=== PATIENT | female | born 1950 | race Caucasian/White ===

== ENCOUNTER 2021-05-29 08:57 | Outpatient (CLI) | payer MEDICARE, BC | END 2021-05-29 08:58 | disposition home or self-care (01) | LOC: BICRAD 08:57 | PROVIDERS: ATTEND Specialist | DX: J44.9 Chronic obstructive pulmonary disease, unspecified (principal) | CPT/HCPCS: 71046 ==

== ENCOUNTER 2021-12-14 10:30 | Outpatient (CLI) | payer MEDICARE, BC | END 2021-12-14 10:31 | disposition home or self-care (01) | LOC: BICRAD 10:30 | PROVIDERS: ATTEND Nurse Practitioner Family | DX: M25.551 Pain in right hip (principal) ==

== ENCOUNTER 2022-05-21 14:33 | Outpatient (CLI) | payer MEDICARE, BC | END 2022-05-21 14:34 | disposition home or self-care (01) | LOC: BICRAD 14:33 | PROVIDERS: ATTEND Specialist | DX: J18.9 Pneumonia, unspecified organism (principal) | CPT/HCPCS: 71046 ==

== ENCOUNTER 2023-02-20 15:17 | Inpatient (IN) | payer MEDICARE, BC ==
[~2023-02-20 15:17] MED LIST: Iopamidol-370 76% 500 ML MDV (1 ML CHARGE) ONE
[2023-02-20] MEDS ORDERED: fentaNYL 50 mcg/mL 1 mL Vial ONE ×2 (16:02→16:35)
[2023-02-20 16:09] LABS: Hemoglobin 10.5 g/dL (12.0-16.0); Mean Corpuscular HGB CONC 31.9 g/dL (32.0-36.0); Mean Corpuscular Hemoglobin 30.1 pg (27.0-31.0); Mean Corpuscular Volume 94.3 fl (78.0-98.0); Mean Platelet Volume 10.4 fL (7.4-10.4); Platelet Count 166 10x3/uL (130-400); RBC Distribution Width 17.3 % (11.5-14.5); Red Blood Cell (RBC) Count 3.49 mill/uL (4.20-5.40); White Blood Cell (WBC) Count 1.4 10x3/uL (4.8-10.8)
[2023-02-20 16:12] LABS: Delete Auto Diff?? YES
[2023-02-20 16:14] LABS: Actual Bicarbonate (HCO3v) 23.3 mEq/L (22-28); Base Excess -2.8 mEq/L (-2.0 to +3.0); Calcium, Ionized (venous) 0.93 mmol/L (1.16-1.32); Chloride (VBG) 97 mmol/L (98-106); Hematocrit-VBG 32 % (36.0-47.0); Hemoglobin (Hb) 10.8 g/dL (11.7-16.1); Potassium (VBG) 5.05 mmol/L (3.70-5.30); Sodium 127.5 mmol/L (133-146)
[2023-02-20 16:21] LABS: INR-International Normal Ratio 1.2; PTT 28.8 sec (22.9-36.1); Prothrombin Time 15.1 sec (12.0-14.7)
[2023-02-20 16:31] LABS: Magnesium 2.1 mg/dL (1.6-2.6)
[2023-02-20 16:41] LABS: Anisocytosis SLIGHT = 6-15 cells HPF (0-5); Burr Cells SLIGHT = 2-5 cells HPF (0-1); CellaVision Operator ID LAB.MJL; Large Platelets 21.4 % (0-5); Ovalocytes SLIGHT = 2-5 cells HPF (0-1); Platelet Adequacy Comment Platelets Normal; Platelet Clumps 1.6 % (0-5); Polychromasia SLIGHT = 2-3 cells HPF (0-2); Vacuoles MODERATE
[2023-02-20 16:45] LABS: Band 45 % (5-11); Lymphocytes 2 % (21-51); Manual Diff?? YES; Metamyelocyte 11 % (0-0); Monocytes 5 % (0-10); Myelocyte 2 % (0-0); Neutrophil 35 % (42-75); Nucleated RBC (Manual Ct) 6 % (0); Total Cell Count 126
[2023-02-20] MEDS ORDERED: Vancomycin 1.5 GRAM/300 ML BAG 1.5 GM in Premix Bag 1 BAG IVPB SCH (18:30)
[2023-02-20] MEDS ORDERED: HYDROmorphone 0.5 MG/0.5 ML SYRINGE ONE (18:32)
[2023-02-20] MEDS ORDERED: cefTRIAXone (ROCEPHIN) 1 GM VIAL ONE ×2 (18:32→18:35)
[2023-02-20] MEDS ORDERED: Ketamine In 0.9 % NaCl 50 MG/5 ML SYRINGE ONE (18:35)
[2023-02-20 18:57] LABS: Troponin I Less than 0.010 ng/mL (< 0.028)
[2023-02-20] MEDS ORDERED: methylPREDNISolone Sod Succ/PF 125 MG/2 ML VIAL ONE (19:15)
[2023-02-20 19:36] LABS: ALT (SGPT) 16 U/L (8-55); AST (SGOT) 17 U/L (5-34); Albumin 2.9 g/dL (3.4-4.8); Alkaline Phosphatase 53 U/L (40-110); Anion Gap 16 mmol/L (10-20); BUN (Urea Nitrogen) 32 mg/dL (9.8-20.1); Bilirubin, Total 0.3 mg/dL (0.2-1.2); Calc. Creatinine Clearance 0 mL/min (70-130); Calcium 8.4 mg/dL (7.8-10.44); Carbon Dioxide 22 mmol/L (23-31); Chloride 98 mmol/L (98-107); Estimated GFR 49; Glucose 75 mg/dL (83-110); Protein, Total 5.9 g/dL (5.8-8.1); Sodium 131 mmol/L (136-145)
[2023-02-20] MEDS ORDERED: Carvedilol 25 MG TAB PO SCH (20:15)
[2023-02-20] MEDS ORDERED: Calcium Carbonate 500 MG ChewTAB PO PRN (20:16)
[2023-02-20] MEDS ORDERED: Ondansetron ODT 4 MG TAB PO PRN (20:16)
[2023-02-20] MEDS ORDERED: Senokot S 8.6-50 MG TAB PO PRN (20:16)
[2023-02-20] MEDS ORDERED: diphenhydrAMINE 25 MG CAP PO PRN (20:45)
[2023-02-20] MEDS ORDERED: Zolpidem Tartrate 5 MG TAB PO PRN (20:45)
[2023-02-20] MEDS ORDERED: diphenhydrAMINE 50 MG/ML VIAL IM/IV PRN (20:45)
[2023-02-20] MEDS ORDERED: Fentanyl CADD 100 ML IVPB SCH (20:45)
[2023-02-20] MEDS ORDERED: Promethazine HCl 25 MG/ML VIAL IM PRN (20:45)
[2023-02-20] MEDS ORDERED: Ondansetron PF 4 MG/2 ML Vial IVP PRN (20:45)
[2023-02-20 21:23] LABS: Lactic Acid 3.2 mmol/L (0.5-2.2)
[2023-02-20] MEDS ORDERED: Ipratropium/Albuterol 3 ML NEB NEB PRN (23:58)
[2023-02-21] MEDS ORDERED: Ipratropium/Albuterol 3 ML NEB NEB PRN (00:13)
[2023-02-21] MEDS ORDERED: Lactated Ringer's 1,000 ML IV SCH ×2 (00:15→05:15)
[2023-02-21] MEDS ORDERED: Lactated Ringer's 500 ML IV SCH ×2 (00:15→02:00)
[2023-02-21] MEDS ORDERED: Docusate 100 MG CAP PO PRN (00:19)
[2023-02-21] MEDS ORDERED: Diltiazem HCl SR 60 mg Capsule PO SCH (00:30)
[2023-02-21] MEDS ORDERED: Naloxone HCl 0.4 mg/ml Vial ONE ×2 (00:31→00:33)
[2023-02-21] MEDS: Naloxone HCl 0.4 mg/ml Vial IV PRN ×2 (00:32→00:36)
[2023-02-21] MEDS ORDERED: Etomidate 20 MG/10 ML VIAL ONE (00:33)
[2023-02-21] MEDS ORDERED: Rocuronium Bromide 10 MG/ML (10ML VIAL) ONE (00:33)
[2023-02-21] MEDS ORDERED: NOREPINEPHRINE 8 MG/250 ML-D5W 250 ML ONE (00:46)
[2023-02-21] MEDS ORDERED: Ventilator Sedation Protocol 1 EACH FS SCH (00:57)
[2023-02-21] MEDS ORDERED: Cefepime 2 GM in Sodium Chloride 0.9% 100 ML IVPB SCH (01:00)
[2023-02-21] MEDS ORDERED: Fentanyl BOLUS 250 ML IVPB PRN (01:15)
[2023-02-21] MEDS ORDERED: Propofol 1,000 MG/100 ML VIAL IV PRN (01:15)
[2023-02-21] MEDS ORDERED: Rocuronium Bromide 10 MG/ML (10ML VIAL) IVP SCH (01:15)
[2023-02-21] MEDS ORDERED: Morphine 2 MG/ML VIAL SLOW IVP PRN (01:15)
[2023-02-21] MEDS ORDERED: Lorazepam 2 MG/ML VIAL SLOW IVP PRN (01:15)
[2023-02-21] MEDS ORDERED: Propofol BOLUS 1,000 MG/100 ML VIAL IV PRN (01:15)
[2023-02-21] MEDS ORDERED: DISCONTINUE PREVIOUS NARCOTIC PAIN MEDICATIONS AND BENZODIAZEPINES FS SCH (01:15)
[2023-02-21] MEDS ORDERED: Fentanyl CADD 0 ML ONE (01:23)
[2023-02-21 01:26] LABS: Actual Bicarbonate (HCO3a) 16.1 mEq/L (22-28); Base Excess (BEa) -10.1 mEq/L (-2.0 to +3.0); CO2 Tension 36.8 mmHg (35.0-45.0); Calcium, Ionized (arterial) 0.92 mmol/L (1.12-1.30); Carboxyhemoglobin (COHb) 0.6 gm% (0.0-3.0); Hematocrit-ABG 26 % (36.0-47.0); O2 Tension (PaO2), arterial 376.3 mmHg (> 70.0)
[2023-02-21 01:30] LABS: Puncture Site LRA
[2023-02-21] MEDS ORDERED: Dextrose 5% in Water 1,000 ML IV PRN (01:41)
[2023-02-21] MEDS ORDERED: Dextrose 50% Abboject 50 ML SYRINGE SLOW IVP PRN (01:41)
[2023-02-21] MEDS ORDERED: Glucagon 1 MG/ML KIT IM PRN (01:41)
[2023-02-21] MEDS: methylPREDNISolone Sod Succ 40 MG VIAL IVP SCH ×4 (02:03→18:39)
[2023-02-21] MEDS: Ipratropium/Albuterol 3 ML NEB NEB SCH ×6 (02:30→21:38)
[2023-02-21] MEDS ORDERED: Electrolyte Replacement Protocol 1 EACH FS SCH (02:35)
[2023-02-21] MEDS ORDERED: NOREPINEPHRINE 8 MG/250 ML-D5W 250 ML IVPB SCH (02:45)
[2023-02-21 05:16] LABS: Anion Gap 16 mmol/L (10-20); BUN (Urea Nitrogen) 28 mg/dL (9.8-20.1); Calc. Creatinine Clearance 76 mL/min (70-130); Calcium 7.6 mg/dL (7.8-10.44); Carbon Dioxide 17 mmol/L (23-31); Chloride 104 mmol/L (98-107); Estimated GFR 70; Glucose 104 mg/dL (83-110); Potassium 4.4 mmol/L (3.5-5.1); Sodium 133 mmol/L (136-145)
[2023-02-21] MEDS: Budesonide 0.5 MG/2 ML NEB NEB SCH ×2 (07:37→18:18)
[2023-02-21] MEDS ORDERED: Fluconazole In NaCl,Iso-Osm 200 MG in Premix Bag 1 BAG IVPB SCH (09:00)
[2023-02-21] MEDS ORDERED: Pantoprazole 40 MG VIAL IVP SCH (09:00)
[2023-02-21] MEDS: guaiFENesin ER 600 MG TAB PO SCH ×2 (09:52→22:00)
[2023-02-21] MEDS: Sodium Bicarbonate 70 MEQ in Sodium Chloride 0.45% 1,000 ML IV SCH (09:52)
[2023-02-21] MEDS: Pantoprazole 40 MG VIAL IVP SCH (09:54)
[2023-02-21] MEDS: Polyethylene Glycol 3350 17 GM Packet PO SCH (09:54)
[2023-02-21] MEDS ORDERED: Vancomycin 1.5 GRAM/300 ML BAG 1.5 GM in Premix Bag 1 BAG IVPB SCH (10:00)
[2023-02-21] MEDS: Nystatin 500,000 UNITS/5 ML UDCUP SSW SCH ×4 (10:29→21:54)
[2023-02-21] MEDS ORDERED: Midazolam HCl 2 mg/2 ml Vial SLOW IVP SCH (13:45)
[2023-02-21] MEDS: Cefepime 1 GM in Sodium Chloride 0.9% 100 ML IVPB SCH (14:03)
[2023-02-21] MEDS ORDERED: Fentanyl CADD 100 ML ONE (15:08)
[2023-02-21] MEDS: Fentanyl CADD 100 ML IV SCH (15:20)
[2023-02-21] MEDS ORDERED: Guaifenesin DM 100-10/5 ML UDCUP PER TUBE PRN (21:53)
[2023-02-22] MEDS: methylPREDNISolone Sod Succ 40 MG VIAL IVP SCH ×4 (00:42→17:58)
[2023-02-22] MEDS: Cefepime 1 GM in Sodium Chloride 0.9% 100 ML IVPB SCH ×2 (00:42→14:08)
[2023-02-22] MEDS: Ipratropium/Albuterol 3 ML NEB NEB SCH ×6 (02:18→21:43)
[2023-02-22] MEDS: Sodium Bicarbonate 70 MEQ in Sodium Chloride 0.45% 1,000 ML IV SCH ×2 (04:00→15:54)
[2023-02-22] MEDS: Fentanyl CADD 100 ML IV SCH (04:30)
[2023-02-22 04:50] LABS: Anion Gap 13 mmol/L (10-20); BUN (Urea Nitrogen) 36 mg/dL (9.8-20.1); Calc. Creatinine Clearance 77 mL/min (70-130); Calcium 7.5 mg/dL (7.8-10.44); Carbon Dioxide 21 mmol/L (23-31); Chloride 100 mmol/L (98-107); Estimated GFR 71; Glucose 127 mg/dL (83-110); Potassium 4.8 mmol/L (3.5-5.1); Sodium 129 mmol/L (136-145)
[2023-02-22 07:02] LABS: Actual Bicarbonate (HCO3a) 22.4 mEq/L (22-28); Base Excess (BEa) -3.7 mEq/L (-2.0 to +3.0); CO2 Tension 45.8 mmHg (35.0-45.0); Calcium, Ionized (arterial) 0.93 mmol/L (1.12-1.30); Carboxyhemoglobin (COHb) 1.7 gm% (0.0-3.0); Hematocrit-ABG 26 % (36.0-47.0); Potassium - ABG Lab 5.19 mmol/L (3.70-5.30); pH, Arterial 7.308 (7.35-7.45)
[2023-02-22 07:27] LABS: Puncture Site RRA
[2023-02-22] MEDS: Budesonide 0.5 MG/2 ML NEB NEB SCH ×2 (07:29→18:27)
[2023-02-22 07:46] LABS: #Monocytes 0.1 thou/uL (0.11-0.59); #Neutrophils 8.1 thou/uL (1.40-6.50); %Basophils 0.1 % (0.0-1.0); %Eosinophils 0.2 % (0.0-10.0); %Lymphocytes 2.1 % (21.0-51.0); %Monocytes 1.2 % (0.0-10.0); %Neutrophils 93.8 % (42.0-75.0); Hemoglobin 9.1 g/dL (12.0-16.0); Mean Corpuscular HGB CONC 32.4 g/dL (32.0-36.0); Mean Corpuscular Hemoglobin 29.6 pg (27.0-31.0); Mean Corpuscular Volume 91.5 fl (78.0-98.0); Mean Platelet Volume 12.3 fL (7.4-10.4); Red Blood Cell (RBC) Count 3.07 mill/uL (4.20-5.40); White Blood Cell (WBC) Count 8.7 10x3/uL (4.8-10.8)
[2023-02-22 07:58] LABS: Platelet Count 25 10x3/uL (130-400)
[2023-02-22] MEDS ORDERED: HYDROcodone/Acetaminophen 5/325 mg Tablet PO PRN (08:38)
[2023-02-22 09:13] LABS: Hemoglobin 8.7 g/dL (12.0-16.0); Mean Corpuscular HGB CONC 31.6 g/dL (32.0-36.0); Mean Corpuscular Hemoglobin 29.7 pg (27.0-31.0); Mean Corpuscular Volume 93.9 fl (78.0-98.0); Mean Platelet Volume 10.9 fL (7.4-10.4); RBC Distribution Width 18.4 % (11.5-14.5); Red Blood Cell (RBC) Count 2.93 mill/uL (4.20-5.40); White Blood Cell (WBC) Count 8.4 10x3/uL (4.8-10.8)
[2023-02-22 09:23] LABS: Delete Auto Diff?? YES; Platelet Count 22 10x3/uL (130-400)
[2023-02-22 09:24] LABS: Manual Diff?? YES
[2023-02-22 09:33] LABS: Vancomycin, Trough 15.9 ug/mL
[2023-02-22] MEDS: Pantoprazole 40 MG VIAL IVP SCH (09:56)
[2023-02-22] MEDS: Polyethylene Glycol 3350 17 GM Packet PO SCH (09:56)
[2023-02-22] MEDS: Nystatin 500,000 UNITS/5 ML UDCUP SSW SCH ×4 (09:56→21:21)
[2023-02-22 10:28] LABS: Anisocytosis SLIGHT = 6-15 cells HPF (0-5); Band 18 % (5-11); Burr Cells SLIGHT = 2-5 cells HPF (0-1); CellaVision Operator ID LAB.NR; Large Platelets 3.6 % (0-5); Lymphocytes 1 % (21-51); Metamyelocyte 9 % (0-0); Neutrophil 73 % (42-75); Nucleated RBC (Manual Ct) 4 % (0); Platelet Adequacy Comment Platelets Decreased; Polychromasia SLIGHT = 2-3 cells HPF (0-2); Total Cell Count 137
[2023-02-22] MEDS: Morphine 4 MG/ML VIAL SLOW IVP PRN ×3 (11:14→16:51)
[2023-02-23] MEDS ORDERED: Furosemide 20 MG/2 ML VIAL SLOW IVP SCH (00:15)
[2023-02-23] MEDS: methylPREDNISolone Sod Succ 40 MG VIAL IVP SCH ×2 (00:34→05:52)
[2023-02-23] MEDS: Cefepime 1 GM in Sodium Chloride 0.9% 100 ML IVPB SCH ×2 (00:34→13:19)
[2023-02-23] MEDS: Ipratropium/Albuterol 3 ML NEB NEB SCH ×6 (02:05→21:56)
[2023-02-23 04:04] LABS: #Monocytes 0.1 thou/uL (0.11-0.59); #Neutrophils 8.9 thou/uL (1.40-6.50); %Basophils 0.1 % (0.0-1.0); %Lymphocytes 0.6 % (21.0-51.0); %Monocytes 1.1 % (0.0-10.0); %Neutrophils 92.5 % (42.0-75.0); Hemoglobin 8.1 g/dL (12.0-16.0); Mean Corpuscular HGB CONC 30.9 g/dL (32.0-36.0); Mean Corpuscular Hemoglobin 29.2 pg (27.0-31.0); Mean Corpuscular Volume 94.6 fl (78.0-98.0); RBC Distribution Width 18.4 % (11.5-14.5); Red Blood Cell (RBC) Count 2.77 mill/uL (4.20-5.40); White Blood Cell (WBC) Count 9.6 10x3/uL (4.8-10.8)
[2023-02-23 04:19] LABS: Platelet Count 8 10x3/uL (130-400)
[2023-02-23 04:20] LABS: Manual Diff?? YES
[2023-02-23 04:38] LABS: ALT (SGPT) 56 U/L (8-55); AST (SGOT) 42 U/L (5-34); Albumin 2.3 g/dL (3.4-4.8); Alkaline Phosphatase 51 U/L (40-110); Anion Gap 12 mmol/L (10-20); BUN (Urea Nitrogen) 34 mg/dL (9.8-20.1); Bilirubin, Total 0.3 mg/dL (0.2-1.2); Calc. Creatinine Clearance 102 mL/min (70-130); Carbon Dioxide 27 mmol/L (23-31); Chloride 100 mmol/L (98-107); Estimated GFR 93; Glucose 93 mg/dL (83-110); Potassium 4.7 mmol/L (3.5-5.1); Protein, Total 5.3 g/dL (5.8-8.1); Sodium 134 mmol/L (136-145)
[2023-02-23 05:19] LABS: Anisocytosis SLIGHT = 6-15 cells HPF (0-5); Band 25 % (5-11); Burr Cells SLIGHT = 2-5 cells HPF (0-1); Hypochromia SLIGHT = 6-15 cells HPF (0-5); Large Platelets 3.7 % (0-5); Lymphocytes 1 % (21-51); Metamyelocyte 1 % (0-0); Monocytes 2 % (0-10); Neutrophil 71 % (42-75); Platelet Adequacy Comment Significant decrease; Tear Drops SLIGHT = 2-5 cells HPF (0-1); Total Cell Count 107
[2023-02-23] MEDS: Sodium Bicarbonate 70 MEQ in Sodium Chloride 0.45% 1,000 ML IV SCH (05:50)
[2023-02-23] MEDS: Budesonide 0.5 MG/2 ML NEB NEB SCH ×2 (06:09→18:12)
[2023-02-23] MEDS: Polyethylene Glycol 3350 17 GM Packet PO SCH (08:55)
[2023-02-23] MEDS: Pantoprazole 40 MG VIAL IVP SCH (09:36)
[2023-02-23] MEDS: Nystatin 500,000 UNITS/5 ML UDCUP SSW SCH ×4 (09:54→20:29)
[2023-02-23] MEDS ORDERED: Thiamine HCl 200 MG/2 ML VIAL SLOW IVP SCH (10:00)
[2023-02-23] MEDS: Dextrose 5 %-0.45 % NaCl 1,000 ML IV SCH (10:32)
[2023-02-23] MEDS: Lorazepam 2 MG/ML VIAL SLOW IVP PRN ×3 (10:38→22:55)
[2023-02-23] MEDS ORDERED: methylPREDNISolone Sod Succ 40 MG VIAL IVP SCH (21:00)
[2023-02-23] MEDS ORDERED: HYDROcodone/Acetaminophen 5/325 mg Tablet PO SCH (21:30)
[2023-02-23] MEDS ORDERED: diphenhydrAMINE 50 MG/ML VIAL IVP SCH (21:30)
[2023-02-24] MEDS ORDERED: Cefepime 2 GM in Sodium Chloride 0.9% 100 ML IVPB SCH (01:00)
[2023-02-24] MEDS: Ipratropium/Albuterol 3 ML NEB NEB SCH ×6 (02:11→22:22)
[2023-02-24 04:32] LABS: Hemoglobin 7.5 g/dL (12.0-16.0); Mean Corpuscular HGB CONC 30.6 g/dL (32.0-36.0); Mean Corpuscular Hemoglobin 28.8 pg (27.0-31.0); Mean Corpuscular Volume 94.2 fl (78.0-98.0); RBC Distribution Width 18.7 % (11.5-14.5)
[2023-02-24 04:41] LABS: Delete Auto Diff?? YES; Manual Diff?? YES; Platelet Count 7 10x3/uL (130-400)
[2023-02-24] MEDS: Lorazepam 2 MG/ML VIAL SLOW IVP PRN ×2 (04:50→23:48)
[2023-02-24 05:06] LABS: Anion Gap 13 mmol/L (10-20); BUN (Urea Nitrogen) 43 mg/dL (9.8-20.1); Calc. Creatinine Clearance 96 mL/min (70-130); Calcium 8.2 mg/dL (7.8-10.44); Carbon Dioxide 27 mmol/L (23-31); Chloride 103 mmol/L (98-107); Estimated GFR 91; Glucose 118 mg/dL (83-110); Potassium 4.7 mmol/L (3.5-5.1); Sodium 138 mmol/L (136-145)
[2023-02-24 05:47] LABS: Anisocytosis SLIGHT = 6-15 cells HPF (0-5); Band 43 % (5-11); CellaVision Operator ID LAB.CLH1; Hypochromia SLIGHT = 6-15 cells HPF (0-5); Metamyelocyte 1 % (0-0); Monocytes 5 % (0-10); Neutrophil 52 % (42-75); Nucleated RBC (Manual Ct) 1 % (0); Platelet Adequacy Comment Platelets Decreased; Polychromasia SLIGHT = 2-3 cells HPF (0-2); Total Cell Count 101
[2023-02-24] MEDS: Dextrose 5 %-0.45 % NaCl 1,000 ML IV SCH (06:02)
[2023-02-24] MEDS: Budesonide 0.5 MG/2 ML NEB NEB SCH ×2 (07:30→21:44)
[2023-02-24] MEDS: Polyethylene Glycol 3350 17 GM Packet PO SCH (08:50)
[2023-02-24] MEDS ORDERED: Meropenem 1 GM in Sodium Chloride 0.9% 100 ML IVPB SCH (09:45)
[2023-02-24] MEDS: Pantoprazole 40 MG VIAL IVP SCH (10:49)
[2023-02-24] MEDS: Thiamine HCl 200 MG/2 ML VIAL SLOW IVP SCH (10:49)
[2023-02-24] MEDS: Micafungin 100 MG in Sodium Chloride 0.9% 100 ML IVPB SCH (11:06)
[2023-02-24] MEDS: Nystatin 500,000 UNITS/5 ML UDCUP SSW SCH ×4 (11:37→21:57)
[2023-02-24] MEDS ORDERED: methylPREDNISolone Sod Succ 40 MG VIAL IVP SCH (12:00)
[2023-02-24] MEDS: methylPREDNISolone Sod Succ/PF 125 MG/2 ML VIAL IVP SCH ×3 (13:08→23:47)
[2023-02-24] MEDS ORDERED: NOREPINEPHRINE 8 MG/250 ML-D5W 250 ML ONE (13:47)
[2023-02-24 17:05] LABS: Base Excess 0.4 mEq/L (-2.0 to +3.0); Calcium, Ionized (venous) 1.08 mmol/L (1.16-1.32); Chloride (VBG) 103 mmol/L (98-106); Hematocrit-VBG 26 % (36.0-47.0); Hemoglobin (Hb) 8.8 g/dL (11.7-16.1); Potassium (VBG) 4.78 mmol/L (3.70-5.30); Sodium 136.2 mmol/L (133-146); pH (venous) 7.265 (7.32-7.43)
[2023-02-24] MEDS ORDERED: Sodium Bicarbonate 150 MEQ in Dextrose 5% in Water 1,000 ML IV SCH (17:15)
[2023-02-24 18:32] VITALS: BP 141/73
[2023-02-24] MEDS: Meropenem 1 GM in Sodium Chloride 0.9% 100 ML IVPB SCH (18:57)
[2023-02-25] MEDS: Ipratropium/Albuterol 3 ML NEB NEB SCH ×4 (02:10→11:20)
[2023-02-25] MEDS: Dextrose 5 %-0.45 % NaCl 1,000 ML IV SCH ×2 (02:43→21:49)
[2023-02-25] MEDS: Meropenem 1 GM in Sodium Chloride 0.9% 100 ML IVPB SCH ×3 (02:46→17:40)
[2023-02-25 03:57] LABS: #Basophils 0.1 thou/uL (0.0-0.2); #Monocytes 0.2 thou/uL (0.11-0.59); #Neutrophils 11.9 thou/uL (1.40-6.50); %Basophils 0.9 % (0.0-1.0); %Eosinophils 0.1 % (0.0-10.0); %Lymphocytes 0.6 % (21.0-51.0); %Monocytes 1.2 % (0.0-10.0); Mean Corpuscular HGB CONC 32.1 g/dL (32.0-36.0); Mean Corpuscular Hemoglobin 29.2 pg (27.0-31.0); Mean Platelet Volume 11.1 fL (7.4-10.4); RBC Distribution Width 19.2 % (11.5-14.5); Red Blood Cell (RBC) Count 3.43 mill/uL (4.20-5.40); White Blood Cell (WBC) Count 13.2 10x3/uL (4.8-10.8)
[2023-02-25 04:14] LABS: Platelet Count 55 10x3/uL (130-400)
[2023-02-25 04:19] LABS: Anion Gap 14 mmol/L (10-20); BUN (Urea Nitrogen) 52 mg/dL (9.8-20.1); Calc. Creatinine Clearance 87 mL/min (70-130); Calcium 9.1 mg/dL (7.8-10.44); Carbon Dioxide 30 mmol/L (23-31); Chloride 101 mmol/L (98-107); Estimated GFR 82; Glucose 196 mg/dL (83-110); Potassium 4.8 mmol/L (3.5-5.1); Sodium 140 mmol/L (136-145)
[2023-02-25] MEDS: Insulin Regular 300 UNITS/3 ML VIAL SC PRN ×3 (04:53→21:28)
[2023-02-25] MEDS: methylPREDNISolone Sod Succ/PF 125 MG/2 ML VIAL IVP SCH ×3 (04:53→17:38)
[2023-02-25] MEDS: Lorazepam 2 MG/ML VIAL SLOW IVP PRN (04:54)
[2023-02-25] MEDS: Budesonide 0.5 MG/2 ML NEB NEB SCH ×2 (07:34→07:49)
[2023-02-25] MEDS: Polyethylene Glycol 3350 17 GM Packet PO SCH (08:06)
[2023-02-25] MEDS ORDERED: Insulin Glargine 30 UNITS/0.3 ML VIAL SC SCH (09:00)
[2023-02-25] MEDS: Thiamine HCl 200 MG/2 ML VIAL SLOW IVP SCH (09:07)
[2023-02-25] MEDS: Pantoprazole 40 MG VIAL IVP SCH (09:11)
[2023-02-25] MEDS: Nystatin 500,000 UNITS/5 ML UDCUP SSW SCH ×4 (09:12→20:15)
[2023-02-25] MEDS ORDERED: Ipratropium/Albuterol 3 ML NEB NEB PRN (11:30)
[2023-02-25 11:43] VITALS: BMI 31.7
[2023-02-25] MEDS: Micafungin 100 MG in Sodium Chloride 0.9% 100 ML IVPB SCH (11:52)
[2023-02-25] MEDS: Morphine 2 MG/ML VIAL SLOW IVP PRN ×2 (12:07→17:38)
[2023-02-25 20:23] VITALS: TEMP 97.9
== END 2023-02-25 22:29 | disposition expired | DRG 871 ==
LOC: ERS 15:17 → ERHOLD 19:23 → IMCU/EMU 23:38 → CCU 02-21 00:44
PROVIDERS: ADMIT Student in an Organized Health Care Education/Training Program; ATTEND Family Medicine
PROC: 4A133R1 Monitoring of Arterial Saturation, Peripheral, Percutaneous Approach (ICD-10-PCS; 2023-02-20)
PROC: 0BH17EZ Insertion of Endotracheal Airway into Trachea, Via Natural or Artificial Opening (ICD-10-PCS; principal; 2023-02-21)
PROC: 5A1945Z Respiratory Ventilation, 24-96 Consecutive Hours (ICD-10-PCS; 2023-02-21)
PROC: 3E033XZ Introduction of Vasopressor into Peripheral Vein, Percutaneous Approach (ICD-10-PCS; 2023-02-21)
PROC: 0B9H8ZX Drainage of Lung Lingula, Via Natural or Artificial Opening Endoscopic, Diagnostic (ICD-10-PCS; 2023-02-21)
PROC: 0B9D8ZX Drainage of Right Middle Lung Lobe, Via Natural or Artificial Opening Endoscopic, Diagnostic (ICD-10-PCS; 2023-02-21)
PROC: 5A0945A Assistance with Respiratory Ventilation, 24-96 Consecutive Hours, High Flow/Velocity Cannula (ICD-10-PCS; 2023-02-22)
PROC: 30233R1 Transfusion of Nonautologous Platelets into Peripheral Vein, Percutaneous Approach (ICD-10-PCS; 2023-02-24)
PROC: 30233N1 Transfusion of Nonautologous Red Blood Cells into Peripheral Vein, Percutaneous Approach (ICD-10-PCS; 2023-02-24)
DX: A41.52 Sepsis due to Pseudomonas (principal); G93.41 Metabolic encephalopathy; J96.21 Acute and chronic respiratory failure with hypoxia; J15.1 Pneumonia due to Pseudomonas; L03.115 Cellulitis of right lower limb; N17.9 Acute kidney failure, unspecified; E87.20 Acidosis, unspecified; J98.11 Atelectasis; I48.92 Unspecified atrial flutter; Z51.5 Encounter for palliative care; Z66 Do not resuscitate; M94.0 Chondrocostal junction syndrome [Tietze]; S81.811A Laceration without foreign body, right lower leg, initial encounter; I25.10 Atherosclerotic heart disease of native coronary artery without angina pectoris; K21.9 Gastro-esophageal reflux disease without esophagitis; I12.9 Hypertensive chronic kidney disease with stage 1 through stage 4 chronic kidney disease, or unspecified chronic kidney disease; N18.9 Chronic kidney disease, unspecified; D63.1 Anemia in chronic kidney disease; M05.10 Rheumatoid lung disease with rheumatoid arthritis of unspecified site; K58.9 Irritable bowel syndrome, unspecified; G89.4 Chronic pain syndrome; S81.801A Unspecified open wound, right lower leg, initial encounter; R91.8 Other nonspecific abnormal finding of lung field; R73.03 Prediabetes; I48.91 Unspecified atrial fibrillation; R74.02 Elevation of levels of lactic acid dehydrogenase [LDH]; I46.8 Cardiac arrest due to other underlying condition; T40.2X1A Poisoning by other opioids, accidental (unintentional), initial encounter; B37.9 Candidiasis, unspecified; D69.59 Other secondary thrombocytopenia; Y95 Nosocomial condition; Z79.82 Long term (current) use of aspirin; Z79.51 Long term (current) use of inhaled steroids; Z79.83 Long term (current) use of bisphosphonates; Z79.1 Long term (current) use of non-steroidal anti-inflammatories (NSAID); Z79.84 Long term (current) use of oral hypoglycemic drugs; Z79.810 Long term (current) use of selective estrogen receptor modulators (SERMs); Z79.52 Long term (current) use of systemic steroids; Z79.631 Long term (current) use of antimetabolite agent; Z98.890 Other specified postprocedural states; Z90.710 Acquired absence of both cervix and uterus; Z95.818 Presence of other cardiac implants and grafts; Z87.891 Personal history of nicotine dependence
CPT/HCPCS: 36415; 36416; 36430; 36600; 71045; 71275; 80048; 80053; 80202; 82550; 82805; 83605; 83735; 83880; 84145; 84484; 85025; 85060; 85610; 85652; 85730; 86140; 86850; 86900; 86901; 87040; 87070; 87077; 87116; 87149; 87186; 87206; 88112; 88305; 88312; 89220; 93005; 94002; 94003; 94640; 96365; 96366; 96367; 96375; 96376; 97139; C9113; J0692; J0696; J1170; J1450; J1815; J1940; J1956; J2060; J2185; J2248; J2250; J2270; J2272; J2310; J2704; J2920; J2930; J3010; J3370; J3411; J3490; J7042; J7070; J7120; J7620; J7626; P9016; P9035; Q9967